=== PATIENT | female | born 1980 | race Caucasian/White ===

== ENCOUNTER 2023-07-13 13:01 | Emergency (ER) | payer MEDICAID ==
[~2023-07-13] VITALS: Ht 160 cm; Wt 80.4 kg
[2023-07-13 13:19] VITALS: BP 136/81; PULSE 91; RESP 20; TEMP 98.1; O2SAT 99
[2023-07-13] MEDS: ACETAMINOPHEN EXTRA STRENGTH 500 MG TAB PO ONE (14:25)
[2023-07-13] MEDS ORDERED: DICL100G32 TP (16:15)
[2023-07-13] MEDS ORDERED: IBUP-1842 PO (16:15)
== END 2023-07-13 16:19 | disposition home or self-care (01) ==
LOC: MED 13:01
DX: S60.222A Contusion of left hand, initial encounter (principal); S00.83XA Contusion of other part of head, initial encounter; H57.12 Ocular pain, left eye; J34.89 Other specified disorders of nose and nasal sinuses; Z79.899 Other long term (current) drug therapy; Y08.89XA Assault by other specified means, initial encounter; Y93.89 Activity, other specified; Y92.89 Other specified places as the place of occurrence of the external cause; Y99.8 Other external cause status
CPT/HCPCS: 70486; 73130; 99284